=== PATIENT | female | born 1975 | race Caucasian/White ===

== ENCOUNTER 2016-11-15 08:41 | Emergency (ER) | payer OTHER ==
[~2016-11-15] VITALS: Ht 152.4 cm; Wt 108.9 kg
[2016-11-15 09:28] LABS: BASOPHILS % (AUTO) 0.4 % (0.0-2.0); EOSINOPHILS # (AUTO) 0.1 /CMM (0.0-0.7); EOSINOPHILS % (AUTO) 1.6 % (0.0-6.0); HEMATOCRIT 38 % (33-45); HEMOGLOBIN 12.6 g/dL (11.5-14.8); LYMPHOCYTES % (AUTO) 15.4 % (20.0-44.0); MEAN CORPUSCULAR HEMOGLOBIN 27 PG (26.0-33.0); MEAN CORPUSCULAR HGB CONC 33 g/dl (31.0-36.0); MEAN CORPUSCULAR VOLUME 82 fL (82-100); MONOCYTES # (AUTO) 0.4 /CMM (0.1-1.30); MONOCYTES % (AUTO) 6.9 % (2.0-12.0); NEUTROPHILS # (AUTO) 4.9 /CMM (1.8-8.9); NEUTROPHILS % (AUTO) 75.7 % (43.0-81.0); PLATELET COUNT (AUTO) 317 /CMM (150-450); RDW COEFFICIENT OF VARIATION 15.2 (11.5-15.0); RED BLOOD CELL COUNT(AUTO) 4.68 MIL/uL (4.0-5.2); WHITE BLOOD COUNT (AUTO) 6.5 K/uL (4.3-11.0)
[2016-11-15 09:40] LABS: CALCIUM, SERUM 8.5 mg/dL (8.5-10.1); CARBON DIOXIDE 28 mmol/L (21-32); CHLORIDE 103 mmol/L (98-107); CREATININE 0.8 mg/dL (0.6-1.3); GFR 78 mL/min (>60); GLUCOSE 104 mg/dL (74-106); POTASSIUM 4.1 mmol/L (3.5-5.1); SODIUM SERUM 138 mmol/L (136-145); UREA NITROGEN, BLOOD 12 mg/dL (7-18)
[2016-11-15 09:48] LABS: TROPONIN I < 0.017 ng/mL (0.00-0.056)
[2016-11-15 10:16] VITALS: BP 111/64
== END 2016-11-15 10:18 | disposition home or self-care (01) ==
LOC: ER 08:44
DX: R06.02 Shortness of breath (principal); K21.9 Gastro-esophageal reflux disease without esophagitis; R11.0 Nausea; I10 Essential (primary) hypertension; F41.0 Panic disorder [episodic paroxysmal anxiety]
CPT/HCPCS: 36415; 71010; 80048; 84484; 85025; 93005; 99285; A4606; Z7610

== ENCOUNTER 2016-11-21 19:33 | Emergency (ER) | payer OTHER ==
[~2016-11-21] VITALS: Ht 152.4 cm; Wt 107.0 kg
--- NOTE | 2016-11-21 19:49 | NUR ---
PT AMBUALTORY TO ER BED 3 PT STATES SHE STARTED HAVING N/V AND DIARRHEA X 1 .5 HOURS AGO AND STATES SHE IS HVAING BURNING CHEST PAIN X 1.5 HOURS. PT AOX4 RR EVEN AND UNLABORED. NO SOB NOTED. NAD NOTED. NO NVD AT THIS TIME. PT PLACED ON MONITOR WAITING FOR MD CORTEZ.
[2016-11-21] MEDS ORDERED: ONDANSETRON 4 MG TAB.RAPDIS ONE (20:06)
[2016-11-21] MEDS: ONDANSETRON 4 MG TAB.RAPDIS SL ONE (20:13)
--- NOTE | 2016-11-21 20:19 | NUR ---
XRAY AT BEDSIDE
[2016-11-21 20:25] VITALS: BP 119/78
--- NOTE | 2016-11-21 21:03 | NUR ---
DR. MENESES AT BEDSIDE SPEAKING TO PT REGARDING RESULTS
== END 2016-11-21 21:09 | disposition home or self-care (01) ==
LOC: ER 19:33
DX: R11.2 Nausea with vomiting, unspecified (principal); R19.7 Diarrhea, unspecified; I10 Essential (primary) hypertension; K21.9 Gastro-esophageal reflux disease without esophagitis; F41.0 Panic disorder [episodic paroxysmal anxiety]
CPT/HCPCS: 71010; 93005; 99284; A4606; Q0162; Z7610

== ENCOUNTER 2017-01-07 13:53 | Emergency (ER) | payer OTHER ==
[~2017-01-07] VITALS: Ht 152.4 cm; Wt 103.9 kg
--- NOTE | 2017-01-07 14:10 | NUR ---
PT CAME IN FOR CHEST PAIN X 1 MONTH WHICH RADIATED TO HER LEFT ARM WITH NUMBING AND WEAKNESS THAT STARTED THIS AM. SEEN BY . ALAYNA NOTED. SAFETY AND COMFORT MEASURES PROVIDED. WILL MONITOR.
--- NOTE | 2017-01-07 14:30 | NUR ---
IV ACCESS STARTED, BLOOD DRAWN FOR LABS.
[2017-01-07 14:46] LABS: BASOPHILS % (AUTO) 0.6 % (0.0-2.0); EOSINOPHILS # (AUTO) 0.1 /CMM (0.0-0.7); EOSINOPHILS % (AUTO) 0.8 % (0.0-6.0); HEMATOCRIT 37 % (33-45); HEMOGLOBIN 12.3 g/dL (11.5-14.8); LYMPHOCYTES # (AUTO) 1.1 /CMM (0.8-4.8); MEAN CORPUSCULAR HEMOGLOBIN 28 PG (26.0-33.0); MEAN CORPUSCULAR HGB CONC 33 g/dl (31.0-36.0); MEAN CORPUSCULAR VOLUME 83 fL (82-100); MONOCYTES # (AUTO) 0.5 /CMM (0.1-1.30); MONOCYTES % (AUTO) 6.5 % (2.0-12.0); NEUTROPHILS # (AUTO) 6.1 /CMM (1.8-8.9); NEUTROPHILS % (AUTO) 78.1 % (43.0-81.0); PLATELET COUNT (AUTO) 319 /CMM (150-450); RDW COEFFICIENT OF VARIATION 14.9 (11.5-15.0); RED BLOOD CELL COUNT(AUTO) 4.47 MIL/uL (4.0-5.2); WHITE BLOOD COUNT (AUTO) 7.8 K/uL (4.3-11.0)
[2017-01-07 14:56] LABS: CALCIUM, SERUM 8.8 mg/dL (8.5-10.1); CARBON DIOXIDE 26 mmol/L (21-32); CHLORIDE 106 mmol/L (98-107); CREATININE 0.8 mg/dL (0.6-1.3); GLUCOSE 116 mg/dL (74-106); POTASSIUM 3.8 mmol/L (3.5-5.1); SODIUM SERUM 140 mmol/L (136-145); UREA NITROGEN, BLOOD 11 mg/dL (7-18)
[2017-01-07 15:06] LABS: TROPONIN I < 0.017 ng/mL (0.00-0.056)
[2017-01-07 15:07] LABS: INR 1.04 (0.87-1.13); PROTHROMBIN TIME 11.2 SECS (9.5-12.7)
--- NOTE | 2017-01-07 15:29 | NUR ---
IV removed. Catheter intact and site benign. Pressure and 4x4 applied to site. No bleeding noted.Patient discharged to home in stable condition. Written and verbal after care instructions given. Patient verbalizes understanding of instruction.
[2017-01-07 15:31] VITALS: BP 93/58
== END 2017-01-07 15:39 | disposition home or self-care (01) ==
LOC: ER 13:56
DX: R07.89 Other chest pain (principal); K21.9 Gastro-esophageal reflux disease without esophagitis; F41.9 Anxiety disorder, unspecified; I10 Essential (primary) hypertension
CPT/HCPCS: 36415; 71010; 80048; 84484; 85025; 85730; 93005; 99285; A4606; Z7610

== ENCOUNTER 2017-11-03 16:49 | Emergency (ER) | payer OTHER ==
[~2017-11-03] VITALS: Ht 165.1 cm; Wt 101.6 kg
--- NOTE | 2017-11-03 16:52 | NUR ---
PATIENT TO ED DT HEADACHE AND CHEST PALPITATION DOCTOR OF MEDICINE. PATIENT IS AWAKE AND ALERT,. SKIN IS WARM TO TOUCH AND NON DIAPHORETIC, PATIENT IS AFEBRILE. DENIES CHEST PAIN AT THIS TIME, VSS
[2017-11-03 17:59] LABS: BASOPHILS % (AUTO) 0.4 % (0.0-2.0); EOSINOPHILS % (AUTO) 1.6 % (0.0-6.0); HEMATOCRIT 37 % (33-45); HEMOGLOBIN 12.2 g/dL (11.5-14.8); LYMPHOCYTES # (AUTO) 1.4 /CMM (0.8-4.8); LYMPHOCYTES % (AUTO) 14.7 % (20.0-44.0); MEAN CORPUSCULAR HGB CONC 33 g/dl (31.0-36.0); MEAN CORPUSCULAR VOLUME 82 fL (82-100); MONOCYTES # (AUTO) 0.6 /CMM (0.1-1.30); MONOCYTES % (AUTO) 6.3 % (2.0-12.0); NEUTROPHILS # (AUTO) 7.2 /CMM (1.8-8.9); PLATELET COUNT (AUTO) 394 /CMM (150-450); RDW COEFFICIENT OF VARIATION 14.8 (11.5-15.0); RED BLOOD CELL COUNT(AUTO) 4.47 MIL/uL (4.0-5.2); WHITE BLOOD COUNT (AUTO) 9.4 K/uL (4.3-11.0)
[2017-11-03 18:14] LABS: APPEARANCE,URINE CLEAR (CLEAR); BILIRUBIN,URINE NEGATIVE (NEGATIVE); BLOOD, URINE NEGATIVE Ery/uL (NEGATIVE); COLOR,URINE YELLOW (YELLOW); KETONES,URINE NEGATIVE (NEGATIVE); LEUKOCYTE ESTERASE ,URINE NEGATIVE (NEGATIVE); NITRITE, URINE NEGATIVE (NEGATIVE); PH,URINE 5.5 (5.0-8.0); PROTEIN,URINE NEGATIVE (NEGATIVE); UGLUCOSE NEGATIVE (NEGATIVE); UROBILINOGEN,URINE 0.2 EU/dL (0.2)
[2017-11-03 18:21] LABS: CALCIUM, SERUM 8.8 mg/dL (8.5-10.1); POTASSIUM 3.5 mmol/L (3.5-5.1)
[2017-11-03 18:23] LABS: INR 0.99 (0.87-1.13)
[2017-11-03 18:27] LABS: CREATININE 0.8 mg/dL (0.6-1.3)
--- NOTE | 2017-11-03 18:37 | NUR ---
Patient is resting comfortably in bed with eyes closed. Easily aroused. VSS
[2017-11-03 19:20] VITALS: BP 112/80
--- NOTE | 2017-11-03 19:20 | NUR ---
Patient discharged to home in stable condition. Written and verbal after care instructions given. Patient verbalizes understanding of instruction.IV removed. Catheter intact and site benign. Pressure and 4x4 applied to site. No bleeding noted.
== END 2017-11-03 19:21 | disposition home or self-care (01) ==
LOC: ER 16:56
DX: F41.9 Anxiety disorder, unspecified (principal); R51 Headache; R42 Dizziness and giddiness; K21.9 Gastro-esophageal reflux disease without esophagitis
CPT/HCPCS: 36415; 80048-TC; 81000-TC; 84443-TC; 84703-TC; 85025-TC; 85730-TC; A4606; Z7610

== ENCOUNTER 2020-02-01 14:42 | Inpatient (IN) | payer OTHER ==
[~2020-02-01] VITALS: Ht 154.9 cm; Wt 112.0 kg
[2020-02-01] MEDS ORDERED: ASPIRIN 325 MG TABLET ONE (15:27)
[2020-02-01] MEDS ORDERED: ASPIRIN 325 MG TABLET PO ONE (15:30)
[2020-02-01 15:43] LABS: BASOPHILS # (AUTO) 0.1 /CMM (0.0-0.2); BASOPHILS % (AUTO) 0.9 % (0.0-2.0); EOSINOPHILS % (AUTO) 2.3 % (0.0-6.0); HEMATOCRIT 36 % (33-45); HEMOGLOBIN 11.4 g/dL (11.5-14.8); LYMPHOCYTES # (AUTO) 1.4 /CMM (0.8-4.8); LYMPHOCYTES % (AUTO) 16.3 % (20.0-44.0); MEAN CORPUSCULAR HGB CONC 32 g/dl (31.0-36.0); MEAN CORPUSCULAR VOLUME 83 fL (82-100); MONOCYTES # (AUTO) 0.4 /CMM (0.1-1.30); NEUTROPHILS # (AUTO) 6.7 /CMM (1.8-8.9); NEUTROPHILS % (AUTO) 75.5 % (43.0-81.0); PLATELET COUNT (AUTO) 352 /CMM (150-450); RED BLOOD CELL COUNT(AUTO) 4.35 MIL/uL (4.0-5.2); WHITE BLOOD COUNT (AUTO) 8.9 K/uL (4.3-11.0)
[2020-02-01 16:11] LABS: CALCIUM, SERUM 9.1 mg/dL (8.5-10.1); CARBON DIOXIDE 28 mmol/L (21-32); CHLORIDE 104 mmol/L (98-107); CREATININE 0.7 mg/dL (0.6-1.3); GLUCOSE 128 mg/dL (74-106); POTASSIUM 3.7 mmol/L (3.5-5.1); SODIUM SERUM 137 mmol/L (136-145); UREA NITROGEN, BLOOD 16 mg/dL (7-18)
[2020-02-01 16:17] LABS: ALANINE AMINOTRANSFERASE 23 U/L (12-78); ALBUMIN 3.3 g/dL (3.4-5.0); ALKALINE PHOSPHATASE 98 U/L (46-116); ASPARTATE AMINOTRANSFERASE 21 U/L (15-37); BILIRUBIN,DIRECT 0.1 mg/dL (0.0-0.2); BILIRUBIN,TOTAL 0.3 mg/dL (0.2-1.0); TOTAL PROTEIN, SERUM 7.2 g/dL (6.4-8.2)
[2020-02-01] MEDS ORDERED: LISI-603 PO (16:41)
[2020-02-01] MEDS ORDERED: PANT40TA4 PO (16:41)
[2020-02-01] MEDS ORDERED: L.AC1CAP6 PO (16:49)
[2020-02-01] MEDS ORDERED: MULT-134 PO (16:49)
[2020-02-01] MEDS ORDERED: CHOL100040 PO (16:49)
[2020-02-01] MEDS ORDERED: AMOX500C2 PO (16:49)
[2020-02-01] MEDS ORDERED: ACETAMINOPHEN 325 MG TABLET PO PRN (17:30)
[2020-02-01] MEDS ORDERED: MAG HYDROX/AL HYDROX/SIMETH 30 ML UDC PO PRN (17:30)
[2020-02-01] MEDS ORDERED: MAGNESIUM HYDROXIDE 30 ML UDC PO PRN (17:30)
[2020-02-01] MEDS ORDERED: HYDROCODONE/APAP 5/325MG 1 EACH TABLET PO PRN (17:30)
[2020-02-01] MEDS ORDERED: ONDANSETRON HCL/PF 4 MG/2 ML VIAL IVP PRN (17:30)
[2020-02-01] MEDS ORDERED: Z GUARD REMEDY 2 OZ OINT TP PRN (17:30)
--- NOTE | 2020-02-01 17:45 | NUR ---
received a call from the lab regarding covid 19 testing result "negative".
--- NOTE | 2020-02-01 18:10 | NUR ---
BED ASSIGNED: 320-2
--- NOTE | 2020-02-01 19:23 | NUR ---
TOOK OVER PT CARE. PT AAOX4. PLACED ON PORT DRIER AND PULSE OX. STATED SHE HAS BEEN HAVING CP X1 WEEK OR SO, STATED LEFT ARM WAS NUMB TODAY. CAME TO ED. NO ACUTE DISTRESS NOTED. WILL CALL FOR REPORT SOON.
--- NOTE | 2020-02-01 19:53 | NUR ---
REPORT GIVEN TO JOSUE FLYNN FOR OSBALDO
--- NOTE | 2020-02-01 20:14 | NUR ---
PT TRANSFERED PER [facility]
--- NOTE | 2020-02-01 20:20 | NUR ---
TRANSFER CAR OPERATORASSEMBLY MACHINE SET UP MECHANIC NOTES ADMITTED FROM ER THIS 44 YO FEMALE PER [facility]OTOC[facility].ALERT,ORIENTED X4,WITH CHIEF COMPLAINTS OF ON AND OFF CHEST PAIN X 3 WEEKS AND NUMBNESS OF LEFT ARM.DIAGNOSIS OF CHEST PAIN.DENIES CHEST PAIN UPON ARRIVAL ON THE UNIT,LEFT ARM NUMBNESS IMPROVED.SALINE LOCK RIGHT AC INTACT AND PATENT.VITAL SIGNS WITH IN NORMAL LIMITS.AMBULATE WITH STEADY GAIT.OBESE,NO SKIN ISSUES.SR-[id number] ON TELE MONITOR.CALL LIGHT IN REACH,NEEDS ANTICIPATED.
[2020-02-01 20:30] VITALS: BP 129/62
[2020-02-02] VITALS: BP 112/55
[2020-02-02 04:00] VITALS: BP 116/74
--- NOTE | 2020-02-02 06:34 | NUR ---
PRODUCT SUPPORT TECHNICIAN NOTES SLEPT WITH INTERVALS,INSTRUCTED BREAKFAST WILL BE HELD FOR LITTLE WHILE TILL SEEN BY STOCK SHAPER.CLAIMED SHE FEELS A LITTLE BIT OF ITCHINESS ON BOTH EYES, BUT ITS GONE RIGHT AWAY,NO REDNESS NOTED,DENIES ALLERGIES.SR ON TELE MONITOR.WILL ENDORSE TO DAY NURSE FOR OSBALDO.
[2020-02-02 06:38] LABS: BASOPHILS % (AUTO) 0.4 % (0.0-2.0); EOSINOPHILS % (AUTO) 2.4 % (0.0-6.0); HEMATOCRIT 36 % (33-45); HEMOGLOBIN 11.4 g/dL (11.5-14.8); LYMPHOCYTES # (AUTO) 1.8 /CMM (0.8-4.8); LYMPHOCYTES % (AUTO) 21.6 % (20.0-44.0); MEAN CORPUSCULAR HGB CONC 32 g/dl (31.0-36.0); MEAN CORPUSCULAR VOLUME 82 fL (82-100); MONOCYTES # (AUTO) 0.6 /CMM (0.1-1.30); MONOCYTES % (AUTO) 7.4 % (2.0-12.0); NEUTROPHILS # (AUTO) 5.8 /CMM (1.8-8.9); NEUTROPHILS % (AUTO) 68.2 % (43.0-81.0); PLATELET COUNT (AUTO) 314 /CMM (150-450); RED BLOOD CELL COUNT(AUTO) 4.36 MIL/uL (4.0-5.2); WHITE BLOOD COUNT (AUTO) 8.6 K/uL (4.3-11.0)
[2020-02-02 06:59] LABS: CALCIUM, SERUM 8.8 mg/dL (8.5-10.1); CREATININE 0.6 mg/dL (0.6-1.3); MAGNESIUM 2.1 mg/dL (1.8-2.4); PHOSPHORUS 3.6 mg/dL (2.5-4.9); POTASSIUM 3.7 mmol/L (3.5-5.1)
[2020-02-02] MEDS ORDERED: PANTOPRAZOLE 40 MG TABLET.DR PO SCH (07:30)
--- NOTE | 2020-02-02 07:35 | NUR ---
RN OPENING NOTE Patient is resting in bed, A/O x4, showing no signs of acute distress or SOB, stable on RA. IV line in the RAC #18g is clean and intact s/l flushing well. Patient is ambulatory with BRP. Patient has no complaints of pain or chest pain at this time. Patient is kept NPO for scheduled CTA this AM. Bed is in lowest position, side rails x2 in upright position, call light is within reach, fall safety precautions enforced. Will continue with plan of care.
[2020-02-02 08:00] VITALS: BP 126/54
[2020-02-02] MEDS ORDERED: IV NS 0.9% 250 ML IV ONE (08:28)
[2020-02-02] MEDS ORDERED: IOHEXOL-350 100 ML VIAL IV ONE (08:28)
[2020-02-02] MEDS ORDERED: NITROGLYCERIN 0.4 MG/TAB BOTTLE SL ONE (08:30)
[2020-02-02] MEDS ORDERED: METOPROLOL TARTRATE INJ 5 MG/5 ML AMPUL ONE (08:36)
[2020-02-02] MEDS ORDERED: NITROGLYCERIN 0.4 MG/TAB BOTTLE ONE (08:36)
[2020-02-02] MEDS: METOPROLOL TARTRATE INJ 5 MG/5 ML AMPUL IVP PRN ×2 (08:53→08:59)
[2020-02-02 08:59] VITALS: BP 116/65
[2020-02-02] MEDS ORDERED: LISINOPRIL (20MG) 20 MG TABLET PO SCH (09:00)
[2020-02-02] MEDS ORDERED: CHOLECALCIFEROL 1,000 UNIT TABLET (VIT D3) PO SCH (09:00)
--- NOTE | 2020-02-02 10:01 | NUR ---
RN NOTE Patient arrived from CTA around 944. Patient is stable, vital signs stable, DC telemetry status per MD. Patient is eating breakfast at this time.
--- NOTE | 2020-02-02 11:32 | NUR ---
RIVERBOAT MASTER NOTE Patient is medically cleared for discharge by Dr. Trimble. Patient is A/O x4, showing no signs of acute distress or SOB, stable on RA. Skin assessed and skin remains intact. IV line removed, ID band removed. DC instructions provided and patient verbalized understanding. All belongings are with the patient. Patient remains stable throughout stay, vital signs stable, all patient needs met, all due medications given, patient is ambulatory and independent with care. I walked patient downstairs and she was picked up by Aryan. Charge nurse aware. Patient en route to home.
== END 2020-02-02 15:28 | disposition home or self-care (01) | DRG 206 ==
LOC: ER 14:42 → TELE 18:55 → MED 02-02 07:47
PROVIDERS: ADMIT Internal Medicine; ATTEND Internal Medicine
DX: M94.0 Chondrocostal junction syndrome [Tietze] (principal); E44.0 Moderate protein-calorie malnutrition; Z68.42 Body mass index [BMI] 45.0-49.9, adult; I10 Essential (primary) hypertension; F41.9 Anxiety disorder, unspecified; D64.9 Anemia, unspecified; E66.01 Morbid (severe) obesity due to excess calories; G47.33 Obstructive sleep apnea (adult) (pediatric); K21.9 Gastro-esophageal reflux disease without esophagitis; E88.09 Other disorders of plasma-protein metabolism, not elsewhere classified
CPT/HCPCS: 36415; 71045-TC; 75574; 80048-TC; 80061-TC; 80076-TC; 83735-TC; 84100-TC; 84484-TC; 84703-TC; 85025-TC; 85378-TC; 87081-TC; 93307-TC; G0378; J3490; J7050; Q9967

== ENCOUNTER 2020-12-05 03:40 | Emergency (ER) | payer OTHER ==
[~2020-12-05] VITALS: Ht 152.4 cm; Wt 113.4 kg
[~2020-12-05 03:40] MED LIST: AMOX500C2 PO; CHOL100040 PO; L.AC1CAP6 PO; LISI20TA30 PO; MULT-134 PO; PANT40TA49 PO
[2020-12-05 04:12] VITALS: BP 134/69
[2020-12-05] MEDS ORDERED: IBUPROFEN 600 MG TABLET ONE (04:26)
[2020-12-05] MEDS ORDERED: IBUPROFEN 600 MG TABLET PO ONE (04:30)
== END 2020-12-05 04:45 | disposition home or self-care (01) ==
LOC: ER 03:40
DX: M54.2 Cervicalgia (principal); I10 Essential (primary) hypertension; K21.9 Gastro-esophageal reflux disease without esophagitis; Z79.899 Other long term (current) drug therapy